=== PATIENT | female | born 1950 | race Caucasian/White ===

== ENCOUNTER 2016-07-16 15:27 | Emergency (ER) | payer MEDICARE, OTHER ==
[~2016-07-16] VITALS: Ht 165.1 cm; Wt 197.0 kg
--- NOTE | 2016-07-16 15:41 | ED.REPORT ---
HPI-Neurologic Deficit Date of Service July 16, 2016 ED Provider: Anthony Casas MD Patient is a 66 year old female who presents to the ED via EMS for stroke-like symptoms. She was walking normally at 1500 today when she had sudden onset weakness and crumpled to the ground. Associated symptoms include L arm weakness , slight headache, and slurred speech. She denies nausea, vomiting, or any other symptoms. She had an aneurysm repair 1 week ago and an aortic dissection repair 3 months ago. She has been on blood thinners for the past month. Nursing Notes Stated Complaint: STROKE Chief Complaint: Stroke Symptoms Nursing Notes Reviewed: Yes Allergies: Coded Allergies: No Known Allergies (Unverified , 07/16/16) General Time Seen by Provider: 15:34 Chief Complaint Other (Sudden onset weakness ) Hx Obtained From: Patient, EMS Arrived By: Ambulance Sudden in Onset?: Yes Onset Occurred: 31 - 45 minutes ago Recent Healthcare: Recent hospitalization, Previous surgery Risk Factors TPA Administration/Criteria Stroke Thrombolytic Therapy : TPA Considered: Yes Neurologist Contacted: Yes NIH Stroke Scale Level of Consciousness: Alert and responsive (0) Ask Month & Age: Both questions right (0) Open/Close Eyes/Hand Lead Nuclear Medicine Technologist: Performs both tasks (0) Horizontal EO Movements: None (0) Visual Remy: Partial hemianopsia (1) (R sided ) Facial Palsy: Normal symmetry (0) Right Arm Motor Drift (10s): No drift 10 sec (0) Left Arm Motor Drift (10s): Drift, hits bed (2) Right Leg Motor Drift (5s): No drift 5 sec (0) Left Leg Motor Drift (5s): Drift, hits bed (2) Limb Ataxia FNF/Heel-Luong: Ataxia in 2 limbs (2) (Both L extremities ) Sensation (Arms/Legs/Face): P-prick dull but felt (1) (L upper extremity ) Language Aphasia: Loss fluency ID matls (1) Dysarthria: No dysarthria, normal (0) Extinction/Inattention: Extin to >1 modal (2) NIHSS Score: 11 Time NIHSS Performed: 15:45 Date NIHSS Performed: July 16, 2016 Past Medical History 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 Past Medical History LAVELLE w/CPAP One functioning kidney Reports: Hypertension Past Surgical History aortic dissection repair aneurysm repair aortic arch replacement renal Social History Other Social History: Good social support, Review of Systems GI: Denies: Nausea, Vomiting Neurologic: Reports: Headache, Slurred speech, Weakness Complete sys rev & neg: except as marked. Physical Exam Initial Vital Signs Vital Signs (First) Date Time Temp Pulse Resp B/P Pulse Ox O2 Delivery O2 Flow Rate FiO2 07/16/16 15:46 36.7 62 18 139/78 97 Room Air Initial VS: Reviewed, Vital signs normal Neck: Full range of motion Abdomen / GI: Soft, Non-tender Skin: Warm, Dry Psychiatric: Mood/affect normal General/Constitutional: Awake, Alert, Well developed Head / Eyes: Atraumatic, Normocephalic Respiratory / Chest: Breath sounds NL, Breath sounds = bilat, No respiratory distress Cardiovascular: Heart rate NL, Regular rhythm Heart Sounds / Murmur: Positive: Systolic murmur present.. Midline thoracotomy scar No carotid brewery Neurologic: Oriented X3 L sided weakness and decreased sensation. Interpretation & Diagnostics Lab Results Interpretation Result Diagram: 07/16/16 1530 07/16/16 1530 Test 07/16/16 15:30 07/16/16 17:57 White Blood Count 7.6th/mm3 (3.8-10.1) Red Blood Count 3.22mil/mm3 (3.90-5.20) Hemoglobin 9.6g/dL (12.0-15.6) Hematocrit 29.3% (35.0-46.0) Mean Corpuscular Volume 91.0fL (81-100) Mean Corpuscular Hemoglobin 29.8pg (27.0-35.0) Mean Corpuscular Hemoglobin Concent 32.8% (32.0-37.0) Red Cell Distribution Width 15.3% (12.3-15.4) Platelet Count 179bil/L (150-400) Neutrophils (%) (Auto) 71.1% (40-74) Lymphocytes (%) (Auto) 12.1% (14-46) Monocytes (%) (Auto) 10.4% (4-12) Eosinophils (%) (Auto) 5.6% (0-5) Basophils (%) (Auto) 0.5% (0-3) Prothrombin Time 10.2sec (8.1-12.5) Prothromb Time International Ratio 0.95ratio Activated Partial Thromboplast Time 27.5sec (22.8-33.0) Sodium Level 135mEq/L (134-144) Potassium Level 3.6mEq/L (3.5-5.2) Chloride Level 97mEq/L (97-108) Carbon Dioxide Level 24mmol/L (18-29) Blood Urea Nitrogen 31mg/dL (8-27) Creatinine 1.68mg/dL (0.57-1.00) Estimat Glomerular Filtration Rate 44mL/min (>59) Glucose Level 123mg/dL (60-99) Calcium Level 9.2mg/dL (8.5-10.1) Total Bilirubin 0.2mg/dL (0.0-1.2) Aspartate Amino Transf (AST/SGOT) 15U/L (0-50) Alanine Aminotransferase (ALT/SGPT) 6U/L (0-32) Alkaline Phosphatase 95U/L (25-165) Troponin T < 0.010ug/L (0.0-0.011) Total Protein 7.0g/dL (6.4-8.4) Albumin 3.7g/dL (3.4-5.0) Lab Results Interpretation: CT ANGIO HEAD AND NECK: IMPRESSION: 1. Persistent low attenuation within the left parietal-occipital lobe suspicious for ischemia. 2. Mild atrophy and chronic microvascular ischemic changes. 3. Non-visualization of opacification within the right P1 and P2 segments of the posterior cerebral artery. There is visualization of the posterior cerebral artery distally/P3 segments. Findings are suggestive of proximal occlusion. 4. No areas of hemodynamically significant stenosis, vascular occlusion or aneurysmal dilation within the anterior circulation. 5. No areas of hemodynamically significant stenosis, vascular occlusion or aneurysmal dilation within the neck vasculature. 6. Endovascular repair of thoracic aortic aneurysm. Dictated by: Krissy Godinez M.D. on 07/16/2016 at 17:40 Approved by: Krissy Godinez M.D. on 07/16/2016 at 17:51 ECG Interpretation ECG Interpretation: Sinus rate 69 Left axis deviation Non-specific ST abnormalities Time: 15:55 Interpreted by: ED physician CT Head Interpretation IMPRESSION: 1. Right parietal-occipital lobe focus of low attenuation suspicious for subacute ischemia. However, other etiologies cannot be excluded. As clinically indicated, MRI may be obtained for additional evaluation. 2. Mild chronic microvascular ischemia. The above findings were discussed with Dr. Anthony Casas on 07/16/16 at 3:45 PM. This study fulfills neurological imaging criteria for inclusion or exclusion of acute stroke therapies based on available published neurological guidelines. Dictated by: Krissy Godinez M.D. on 07/16/2016 at 15:44 Approved by: Krissy Godinez M.D. on 07/16/2016 at 15:48 Study: Head CT no contrast Interpretation / Wet Read by: Interpret - Radiologist, Discussed w radiologist Re-Eval/Medical Decision Med Decision/Clinical Course 66-year-old female with previous thoracic aortic aneurysm presenting with the abrupt onset of left hemiparesis consistent with a stroke. She presented well within the TPA window, unfortunately her recent invasive procedure for aneurysm repair contraindicated systemic TPA. Given that she was previously was established with [facility] and has had complex care there we contacted the stroke service. Imaging suggested a subacute stroke however patient and family are insistent that her symptoms began at [address] angiogram was performed but no lesion appropriate for intervention was identified. Patient was given aspirin in the emergency department. She is to be transferred to [facility] for further care but she and the family understand that she is not a candidate for acute intervention. Patient is stable for transfer. Re-Evaluation/Progress : Time of Eval: 18:04 )( Re-Eval Neurologic Exam: Alert Re-Evaluation/Progress Note: Rechecked patient. Discussed consult with [facility] and options for admission. Would like to be admitted to [facility]. Consultation #1: Call Returned at: 15:54 Note: Discussed pt case with Dr. Herman Barlow at . Agrees that patient is not a TPA canidate. Wants CT angiogram and to report back with results. Consultation #2: Call Returned at: 17:24 Note: Will push images to Yen. Consultation #3: Call Returned at: 17:56 Note: Discussed CT angio head and neck report with Yen. Pt will be admitted to [facility]. Counseled Regarding: Diagnosis, Lab results, Need for transfer Discharge & Departure Impression: Primary Impression: Cerebrovascular accident CVA mechanism: unspecified Qualified Code: I63.9 - Cerebral infarction, unspecified Disposition: Transfer, Acute Care Facility Receiving Hospital: [facility] to Dr. Herman Barlow Transfer Accepted: Yes Transfer Accepted at: 18:15 Transfer Reason: Higher level of care Spoke with: Specialty physician Patient Status: Stable, Stable for transfer Patient Informed: Yes Discharge Condition All VS Reviewed: Yes Condition: Stable Referrals: NOPCP (PCP) Crit Care Except Billable Proc Time Spent: 30-74 minutes Services Performed: Patient management by me, Time spent at bedside, Reviewing test results, Reviewing imaging, Discussing patient care, Documentation in record, Time with fam/surrogate Scribe Attestation Portions of this note were transcribed by Louie Armenta. I, Dr. Casas personally performed the history, physical exam and medical decision-making; I reviewed and confirmed the accuracy of the information in the transcribed note. Signed by: Louie Armenta 07/16/2016, 1816 Anthony Casas MD July 16, 2016 15:41 LOUIE ARMENTA July 16, 2016 15:50
[2016-07-16 15:46] VITALS: BP 139/78; PULSE 62; RESP 18; O2SAT 97
[2016-07-16 15:47] LABS: BASOPHILS % (AUTO) 0.5 % (0-3); EOSINOPHILS % (AUTO) 5.6 % (0-5); MONOCYTES % (AUTO) 10.4 % (4-12); Mean Corpuscular Hemoglobin 29.8 pg (27.0-35.0); NEUTROPHILS % (AUTO) 71.1 % (40-74); Platelet Count 179 bil/L (150-400)
--- NOTE | 2016-07-16 15:50 | DRSVH ---
PROCEDURE: CT BRAIN (TPA) ([id number]) INDICATIONS: Stroke TECHNIQUE: Noncontrast 4.5 mm thick angled axial sections acquired from the foramen magnum to the vertex, with c oronal reformats. COMPARISON: None. FINDINGS: Image quality: Excellent. CSF spaces: Basal cisterns are patent. No extra-axial fluid collections. The ventricles are symmet casa in size and shape. Brain: No intracranial bleeds or masses. There is cerebral volume loss for age, with resultant vent ricular and sulcal prominence. There are periventricular and deep white matter chronic small vessel ischemic changes. There is intracranial internal carotid artery atherosclerosis. There is a focal a maryann of low attenuation within the right parietal-occipital lobe. Skull and face: Calvarium and visualized facial bones appear intact, without suspicious lesions. Sinuses: Visualized sinuses and mastoids are clear. IMPRESSION: 1. Right parietal-occipital lobe focus of low attenuation suspicious for subacute ischemia. However, other etiologies cannot be excluded. As clinically indicated, MRI may be obtained for additional eval uation. 2. Mild chronic microvascular ischemia. The above findings were discussed with Dr. Anthony Casas on 07/16/16 at 3:45 PM. This study fulfills neurological imaging criteria for inclusion or exclusion of acute stroke therapie s based on available published neurological guidelines. Dictated by: Krissy Godinez M.D. on 07/16/2016 at 15:44 Approved by: Krissy Godinez M.D. on 07/16/2016 at 15:48
[2016-07-16 16:05] LABS: INR 0.95 ratio
--- NOTE | 2016-07-16 16:08 | NUR ---
Evaluation completed. Please go to "Notes" then click on "Assessments and Notes" (bottom left corner of screen). Then select appropriate discipline tab on top of screen.
[2016-07-16 16:14] LABS: TROPONIN T < 0.010 ug/L (0.0-0.011)
[2016-07-16] MEDS ORDERED: 0.9% Sodium Chloride 500 ML IV ONE (17:25)
[2016-07-16 17:29] VITALS: BP 137/91; PULSE 74; RESP 11; O2SAT 97
--- NOTE | 2016-07-16 17:53 | DRSVH ---
PROCEDURE: CT ANGIO HEAD AND NECK (P) INDICATIONS: L hemiparesis onset 1500 TECHNIQUE: Pre-contrast 4.5 mm thick sections acquired from the foramen magnum to the vertex. After the adminis tration of intravenous contrast, 1 mm thick sections acquired from the aortic arch through the [place] of [place]. Post-contrast 4.5 mm thick sections then re-acquired from the foramen magnum to the vert ex. 3-dimensional wncehnr-[id number] (MIP) and/or volume rendering reformats were acquired of the central intracranial vasculature and neck separately. For radiation dose reduction, the foll owing was used: automated exposure control, adjustment of mA and/or kV according to patient size. COMPARISON: [facility], CT, BRAIN ([facility]), 07/16/2016, 15:40. FINDINGS: Image quality: Excellent. The ventricular system and cortical sulci demonstrate atrophy, consistent for the patient's stated ag e. There are areas of hypodensity in within the periventricular and subcortical white matter. There is no acute intra-or extra axial fluid collection. No acute hemorrhage, mass lesion or midline shift. Brainstem is unremarkable. Globes are symmetrical. Sinuses are aerated. Osseous structures are intac t. There is persistent right parietal occipital low attenuation as identified on CT brain dated at 3:40 PM. The posterior circulation demonstrates a left vertebral artery dominance. Basilar artery and left pos terior cerebral arteries demonstrate no areas of hemodynamically significant stenosis, vascular occlu shraddha or aneurysmal dilation. There is non-visualization of opacification right P1 and P2 segments of posterior cerebral artery. Distal portion/P3 segment is visualized. Posterior communicating arteries are within normal limits. The anterior circulation, including the anterior and middle cerebral arteries, as well as internal ca rotid arteries demonstrates no areas of hemodynamically significant stenosis, vascular occlusion or a neurysmal dilation. The origins of the left and right common, internal and external carotid arteries demonstrate no areas of hemodynamically significant stenosis, vascular occlusion or aneurysmal dilation. Origins of the l eft and right vertebral arteries demonstrate no areas of hemodynamically significant stenosis, vascul ar occlusion or aneurysmal dilation. Aortic arch demonstrates bovine anatomy, consistent with congenital variation. Limited, visualized portions subclavian vascula ture are unremarkable. Aortic graft repair in aneurysmal dilation is noted. No gross evidence of janeth t failure. IMPRESSION: 1. Persistent low attenuation within the left parietal-occipital lobe suspicious for ischemia. 2. Mild atrophy and chronic microvascular ischemic changes. 3. Non-visualization of opacification within the right P1 and P2 segments of the posterior cerebral a rtery. There is visualization of the posterior cerebral artery distally/P3 segments. Findings are sug gestive of proximal occlusion. 4. No areas of hemodynamically significant stenosis, vascular occlusion or aneurysmal dilation within the anterior circulation. 5. No areas of hemodynamically significant stenosis, vascular occlusion or aneurysmal dilation within the neck vasculature. 6. Endovascular repair of thoracic aortic aneurysm. Dictated by: Krissy Godinez M.D. on 07/16/2016 at 17:40 Approved by: Krissy Godinez M.D. on 07/16/2016 at 17:51
[2016-07-16 18:20] LABS: APPEARANCE,URINE CLEAR (CLEAR,HAZY); COLOR,URINE YELLOW (YELLOW); OCCULT BLOOD,URINE NEGATIVE (NEGATIVE); UROBILINOGEN,URINE NORMAL (NORMAL)
[2016-07-16 19:06] VITALS: BP 163/72; PULSE 78; RESP 15; O2SAT 97
[2016-07-16 19:22] VITALS: BP 163/72; PULSE 78; RESP 15; O2SAT 97
== END 2016-07-16 19:32 | disposition short-term general hospital (02) ==
LOC: SED 15:27 → EDBD 15:27 → SED 19:32
DX: I63.9 Cerebral infarction, unspecified (principal); I10 Essential (primary) hypertension; G47.33 Obstructive sleep apnea (adult) (pediatric); Z86.79 Personal history of other diseases of the circulatory system; Z98.890 Other specified postprocedural states; Z95.828 Presence of other vascular implants and grafts; Z99.81 Dependence on supplemental oxygen
CPT/HCPCS: 36415; 70450; 70496; 70498; 80053; 81000; 82948; 84484; 85025; 85610; 85730; 92610; 93005; 99291; G8996; G8997; J7040; Q9967